=== PATIENT | female | born 1980 | race Caucasian/White ===

== ENCOUNTER 2020-02-18 14:53 | Emergency (ER) | payer OTHER ==
[2020-02-18 15:17] VITALS: BP 147/90
--- NOTE | 2020-02-18 15:34 | ER Document Report ---
ED Medical Screen (RME) - General Chief Complaint: Chest Tightness Stated Complaint: TIGHTNESS IN CHEST Time Seen by Provider: 02/18/20 15:21 Primary Care Provider: ELIZABETH RAINES MD [Primary Care Provider] - Follow up as needed Mode of Arrival: Ambulatory Information source: Patient Notes: 39-year-old female patient presenting to emergency department concern for chest pain or shortness of breath. Patient reports symptoms ongoing intermittently for the last week. She also reports nausea and body aches. 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 Patient is alert, oriented, no acute distress noted. Lung sounds clear and equal bilaterally. I have greeted and performed a rapid initial assessment of this patient. A comprehensive ED assessment and evaluation of the patient, analysis of test results and completion of the medical decision making process will be conducted by additional ED providers. I have specifically instructed the patient or family members with the patient to immediately return to any nursing staff should anything change in the patient's condition or with their chief complaint. Physical Exam - Vital signs Vitals: Temp Pulse Resp BP Pulse Ox 98.0 F 109 H 20 147/90 H 95 02/18/20 15:14 02/18/20 15:14 02/18/20 15:14 02/18/20 15:14 02/18/20 15:14 Course - Vital Signs Vital signs: Temp Pulse Resp BP Pulse Ox 98.0 F 109 H 20 147/90 H 95 02/18/20 15:14 02/18/20 15:14 02/18/20 15:14 02/18/20 15:14 02/18/20 15:14 Doctor's Discharge - Discharge Referrals: ELIZABETH RAINES MD [Primary Care Provider] - Follow up as needed
--- NOTE | 2020-02-18 16:34 | RADIOLOGY REPORT (SQ) ---
EXAM DESCRIPTION: CHEST SINGLE VIEW IMAGES COMPLETED DATE/TIME: 02/18/2020 4:24 pm REASON FOR STUDY: CHEST PAIN/SHORT OF BREATH COMPARISON: None. EXAM PARAMETERS: NUMBER OF VIEWS: One view. TECHNIQUE: Single frontal radiographic view of the chest acquired. RADIATION DOSE: NA LIMITATIONS: None. FINDINGS: LUNGS AND PLEURA: Diffuse ground-glass attenuation without focal consolidation. No effusi ons. MEDIASTINUM AND HILAR STRUCTURES: No masses. Contour normal. HEART AND VASCULAR STRUCTURES: Heart normal in size. Normal vasculature. BONES: No acute findings. HARDWARE: None in the chest. OTHER: No other significant finding. IMPRESSION: Ground-glass attenuation suspicious for viral pneumonia. TECHNICAL DOCUMENTATION: JOB ID: [id number] [employer]- All Rights Reserved Reading location - IP/workstation name: [email or web address]
[2020-02-18 18:02] LABS: ABSOLUTE LYMPHOCYTES (AUTO) 1.3 10^3/uL (0.5-4.7); ABSOLUTE MONOCYTES (AUTO) 0.4 10^3/uL (0.1-1.4); ABSOLUTE NEUT (AUTO) 3.4 10^3/uL (1.7-8.2); BASOPHILS % (AUTO) 0.8 % (0-2); EOSINOPHILS % (AUTO) 0.5 % (0-6); HEMOGLOBIN 13.2 g/dL (12.0-15.5); LYMPHOCYTES % (AUTO) 25.8 % (13-45); MEAN CORPUSCULAR HEMOGLOBIN 27.3 pg (27.0-33.4); MEAN CORPUSCULAR HGB CONC 33.8 g/dL (32.0-36.0); MEAN CORPUSCULAR VOLUME 81 fl (80-97); MONOCYTES % (AUTO) 7.1 % (3-13); PLATELET COUNT 335 10^3/uL (150-450); RED BLOOD COUNT 4.83 10^6/uL (3.72-5.28); RED CELL DISTRIBUTION WIDTH 15.1 % (11.5-14.0); SEGMENTED NEUTROPHILS % (AUTO) 65.8 % (42-78); TOTAL CELLS COUNTED % (AUTO) 100 %; WHITE BLOOD COUNT 5.2 10^3/uL (4.0-10.5)
[2020-02-18 18:14] LABS: A TYPE INFLUENZA AG NEGATIVE (NEGATIVE); B INFLUENZA AG NEGATIVE (NEGATIVE)
[2020-02-18 18:19] LABS: ALBUMIN 3.7 g/dL (3.5-5.0); ALKALINE PHOSPHATASE 153 U/L (38-126); ANION GAP 8 (5-19); ASPARTATE AMINO TRANSFERASE 56 U/L (14-36); BILIRUBIN,DIRECT 0.4 mg/dL (0.0-0.4); BILIRUBIN,TOTAL 0.4 mg/dL (0.2-1.3); BLOOD UREA NITROGEN 12 mg/dL (7-20); CALCIUM 8.4 mg/dL (8.4-10.2); CARBON DIOXIDE 28 mmol/L (22-30); CHLORIDE 101 mmol/L (98-107); GLUCOSE 95 mg/dL (75-110); POTASSIUM 4.6 mmol/L (3.6-5.0); TOTAL PROTEIN 6.9 g/dL (6.3-8.2)
--- NOTE | 2020-02-18 19:19 | EKG REPORT ---
SEVERITY:- OTHERWISE NORMAL ECG - SINUS TACHYCARDIA : Confirmed by: Ann Stevens MD 18-Feb-2020 19:19:04
--- NOTE | 2020-02-18 19:38 | ER Document Report ---
ED Respiratory Problem - General Chief Complaint: Shortness Of Breath Stated Complaint: TIGHTNESS IN CHEST Time Seen by Provider: 02/18/20 15:21 Primary Care Provider: ELIZABETH RAINES MD [Primary Care Provider] - Follow up tomorrow Mode of Arrival: Ambulatory Notes: Patient is a 39-year-old female no past medical history presents the emergency department with a chief complaint of shortness of breath. States that her shortness of breath is in the middle of her chest. Patient gets tested for COVID-19 from her work, as she works for the [employer]. Does have a current pending Covid test, from 2 days ago. States that she was also cleaning around in old building last week and ended up feeling short of breath, but progressively got worse. Patient does report pain in her chest when she takes a deep breath in. States it is a pressure pain. - Related Data Allergies/Adverse Reactions: metformin Allergy (Verified 02/18/20 15:42) Past Medical History - General Information source: Patient - Social History Smoking Status: Never Smoker Chew tobacco use (# tins/day): No Frequency of alcohol use: None Drug Abuse: None Family History: Reviewed & Not Pertinent Patient has homicidal ideation: No Musculoskeletal Medical History: Reports Hx Arthritis Past Surgical History: Reports: Hx Section - nov 2017 vertical Review of Systems - Review of Systems Notes: REVIEW OF SYSTEMS: CONSTITUTIONAL : Denies recent illness. Denies recent unintentional weight loss. See HPI. EENT: Denies eye, ear, throat, or mouth pain, discharge, or symptoms. Denies nasal or sinus congestion. CARDIOVASCULAR: See HPI. RESPIRATORY: See HPI. GASTROINTESTINAL: Denies nausea, vomiting, and diarrhea. Denies abdominal pain. Denies constipation. GENITOURINARY: Denies difficulty urinating, burning, blood in urine, urgency or frequency. MUSCULOSKELETAL: Denies neck and back pain. Denies joint pain or swelling. SKIN: Denies rash, itchiness, or lesions HEMATOLOGIC : Denies easy bruising or bleeding. LYMPHATIC: Denies swollen, painful, enlarged glands. NEUROLOGICAL: Denies no numbness or tingling denies weakness. Denies headache. Denies altered mental status. Denies alteration in speech. PSYCHIATRIC: Denies stress, anxiety, alteration in sleep patterns, or depression. All other systems reviewed and negative. Physical Exam - Vital signs Vitals: Temp Pulse Resp BP Pulse Ox 98.0 F 109 H 20 147/90 H 95 02/18/20 15:14 02/18/20 15:14 02/18/20 15:14 02/18/20 15:14 02/18/20 15:14 - Notes Notes: PHYSICAL EXAMINATION: GENERAL: Morbidly obese, no acute distress. HEAD: Normocephalic, atraumatic. EYES: PERRL, conjunctiva normal, all extraocular movements intact, sclera nonicteric ENT: Moist mucous membranes. NECK: Supple, no noticeable swelling, redness, rash. Normal range of motion. LUNGS: Equal breath sounds bilaterally and clear to auscultation. No wheezes rales or rhonchi. CARDIOVASCULAR: S1-S2, regular rate, regular rhythm. Radial pulses 2+, normal. ABDOMEN: Normoactive bowel sounds. Soft, nontender, no guarding, no rebound tenderness, and no masses palpated. EXTREMITIES: Normal strength and range of motion, no pitting or edema. No cyanosis. NEUROLOGICAL: Moves all extremities upon command. Strength 5/5 in all extre mities. PSYCH: Normal mood, normal affect. SKIN: Warm, dry. No rash, lesions, ulcerations noted. Normal skin turgor. Course - Re-evaluation Re-evalutation: 02/18/20 20:12 Hematology is unremarkable. LFTs are elevated, along with alkaline phosphatase, most likely due to nonalcoholic fatty liver disease. Troponin is negative. Influenza tests are also negative. D-dimer is positive. X-ray shows groundglass opacities. This is most likely due to a COVID-19 infection. Patient currently has a COVID-19 test that is pending. Unfortunately, the patient is almost 500 pounds and will not sit on the CT table. Due to the current COVID-19 pandemic, multiple hospitals are not taking stable patient transfers, as I know this from trying to transfer other patients to other facilities. I spoke with Dr. Mathews, my attending. She states that we can start the patient on Xarelto and give her dose of Lovenox here in the emergency department. The patient can than follow-up with her primary care provider first thing in the morning for a CTA. I discussed this with the patient. We discussed that this is the best option instead of trying to go to other hospitals, as they are also busy due to the COVID-19 pandemic. Risks of taking Xarelto were discussed and patient agrees to take the Xarelto. Follow-up precautions were given. Verbal discharge instructions were given to the patient. They verbalized understanding. They are stable for discharge. - Vital Signs Vital signs: Temp Pulse Resp BP Pulse Ox 98.0 F 109 H 20 147/90 H 99 02/18/20 15:14 02/18/20 15:14 02/18/20 21:00 02/18/20 15:14 02/18/20 21:00 - Laboratory Results Result Diagrams: 02/18/20 17:30 02/18/20 17:30 Laboratory Results Interpreted: 02/18/20 02/18/20 02/18/20 17:27 17:30 17:30 RDW 15.1 H D-Dimer 0.57 H Sodium 136.5 L AST 56 H ALT 66 H Alkaline Phosphatase 153 H Critical Laboratory Results Reviewed: No Critical Results - Radiology Results Critical Radiology Results Reviewed: No Critical Results - EKG Interpretation by Me Additional EKG results interpreted by me: 02/18/20 Sinus tachycardia. Rate 106. MT 124; QRS 90; QT 336; QTc 447. No ST elevations or depressions noted. No other EKG for comparison. Discharge - Discharge Clinical Impression: Shortness of breath Chest pain Qualifiers: Chest pain type: unspecified Qualified Code(s): R07.9 - Chest pain, unspecified Condition: Stable Disposition: HOME, SELF-CARE Additional Instructions: You were seen today in the emergency department for shortness of breath. We were not able to completely rule out a blood clot in your lungs, but you are being treated for 1. Follow-up with your regular doctor tomorrow. Ask if you can have him order a CTA of the chest in [place]. You are also being started on Xarelto. Prescriptions: Rivaroxaban [Xarelto 15 mg Tablet] 15 mg PO DAILY #21 tablet Referrals: ELIZABETH RAINES MD [Primary Care Provider] - Follow up tomorrow
[2020-02-18] MEDS ORDERED: ACETAMINOPHEN 325 MG TABLET PO ONE (19:44)
[2020-02-18] MEDS ORDERED: ENOXAPARIN SODIUM INJ 100 MG/1 ML DISP.SYRIN SUBCUT SCH (21:00)
[2020-02-18] MEDS ORDERED: ENOXAPARIN SODIUM INJ 150 MG/1 ML DISP.SYRIN SUBCUT SCH (22:00)
== END 2020-02-18 21:20 | disposition home or self-care (01) ==
LOC: ER 14:53
DX: R06.02 Shortness of breath (principal); R07.9 Chest pain, unspecified; R79.89 Other specified abnormal findings of blood chemistry; R74.8 Abnormal levels of other serum enzymes; Z88.8 Allergy status to other drugs, medicaments and biological substances
CPT/HCPCS: 93005; 99285; 96372; 36415; 85025; 80053; 84484; 85379; 87804; 71045; 93010; J1650